=== PATIENT | female | born 1955 | race Caucasian/White ===

== ENCOUNTER 2018-04-10 15:13 | Outpatient (REF) | payer OTHER, SELFPAY ==
[2018-04-10 18:58] LABS: Anion Gap 8.9 mmol/L (3-11); BUN 24 mg/dL (7-18); CO2 27.1 mmol/L (21.0-32.0); CREATININE 1.05 mg/dL (0.55-1.02); Calcium 8.6 mg/dL (8.5-10.1); Chloride 104 mmol/L (98-107); Cholesterol 193 mg/dL (50-200); Estimated GFR 53.28 (mL/min/1.73m2); Glucose 105 mg/dL (70-100); HDL Cholesterol 55 mg/dL (40-60); LDL CHOLESTEROL 104 mg/dL (<100); Potassium 4.3 mmol/L (3.5-5.1); Sodium 140 mmol/L (136-145); Triglyceride 211 mg/dL (30-150)
== END 2018-04-10 15:14 ==
LOC: NCHCN 15:13
PROVIDERS: PCP Internal Medicine; Visit Provider Nurse Practitioner Family
DX: Z00.00 Encounter for general adult medical examination without abnormal findings (principal); Z13.228 Encounter for screening for other metabolic disorders; Z13.220 Encounter for screening for lipoid disorders
CPT/HCPCS: 80048; 80061; 83721

== ENCOUNTER 2019-06-08 18:32 | Outpatient (REF) | payer OTHER, SELFPAY ==
[2019-06-08 19:04] LABS: BUN 11 mg/dL (7-18); CREATININE 0.82 mg/dL (0.55-1.02); Calcium 9.1 mg/dL (8.5-10.1); Calculated LDL 75 mg/dL; Chloride 103 mmol/L (98-107); Cholesterol 154 mg/dL (50-200); Glucose 102 mg/dL (70-100); HDL Cholesterol 52 mg/dL (40-60); Potassium 4.1 mmol/L (3.5-5.1); Sodium 141 mmol/L (136-145); Triglyceride 135 mg/dL (30-150)
[2019-06-08 19:21] LABS: Hemoglobin A1C 6.5 % (4.5-6.2)
== END 2019-06-08 18:52 ==
LOC: NCHCN 18:32
PROVIDERS: PCP Internal Medicine; Visit Provider Nurse Practitioner Family
DX: R73.03 Prediabetes (principal); Z13.220 Encounter for screening for lipoid disorders
CPT/HCPCS: 80048; 80061; 83036

== ENCOUNTER 2020-08-16 04:17 | Outpatient (CLI) | payer OTHER, SELFPAY ==
--- NOTE | 2020-08-16 14:30 | NS.NUTBLAN_ITS ---
ASSESSMENT: Jacquie (65/F) presents with referral for Pre-DM and weight management. Her main concerns today are weight loss and food choices to help facilitate her weight loss goals.She reports losing 30# in 2019 using [employer] program and taking regular walks. Recently she has had some leg issues which have lessened her ability to take walks. She continues weekly meetings with weight loss group. She cooks meals alone for herself which she finds challenging due to her concern about wasting foods and over preparing. She states that she usually does not eat breakfast. Documentation revealed A1c 6.5 and FBG 102 on 06/08/19. Random finger stick at this encounter was 134mg/dl~ 2.5 hours postprandial. She states that she does not use a glucometer. INTERVENTION: Provided demonstration and instruction for Carbs and cals phone jocelyn to help count CHO's and recommended <60 g CHO per meal period. Explained simple and complex CHO's and the role of fiber in the diet r/t BG levels and Cholesterol. Provided literature on counting carbs and reviewed pre-DM BG ranges. Sent Nilam Huffman's ( RN, CDE) contact info for [employer] online Support group program. Recommended [phone] k/cals/day to promote weight loss of 7%. Explained 7% weight loss r/t A1c levels. recommended she get a portion scale to help caloric and CHO leading to weight loss. Recommended she get a glucometer to monitor BG levels 1x/day to track BG and stay in desired ranges. Provided literature on pre-DM. and explained the concept of insulin resistance. NUTRITION DX: Pre DM r/t food choices and nutrition knowledge deficit AEB: A1c 6.5 and random postprandial finger stick 134 mg/dl. MONITOR and EVAL: Jacquie will be focusing on her CHO and caloric intake utilizing the carbs and cals phone jocelyn, Portion scale, and Pre-DM support group to achieve A1c <5.7 and a 7% weight loss. She will return to this office in 6 mos for re-evaluation. Time Spent face to Face: 1 hour/4 units
== END 2020-08-16 04:37 ==
PROVIDERS: PCP Internal Medicine; Visit Provider Dietitian, Registered
DX: R73.03 Prediabetes (principal); E66.3 Overweight; Z71.3 Dietary counseling and surveillance
CPT/HCPCS: 97802

== ENCOUNTER 2021-08-02 15:41 | Outpatient (REF) | payer OTHER, SELFPAY ==
[2021-08-02 19:54] LABS: ALT 21 U/L (14-59); AST 13 U/L (15-37); Albumin 3.5 g/dL (3.4-5.0); Alkaline Phosphatase 110 U/L (46-116); Anion Gap 4.6 mmol/L (3-11); BUN 15 mg/dL (7-18); Bilirubin, Total 0.5 mg/dL (0.2-1.0); CO2 32.4 mmol/L (21.0-32.0); CREATININE 0.9 mg/dL (0.55-1.02); Calcium 8.9 mg/dL (8.5-10.1); Calculated LDL 123 mg/dL (<100); Chloride 103 mmol/L (98-107); Cholesterol 216 mg/dL (<200); Glucose 112 mg/dL (74-106); HDL Cholesterol 61 mg/dL (40-60); Potassium 4.3 mmol/L (3.5-5.1); Sodium 140 mmol/L (136-145); Total Protein 7.3 g/dL (6.4-8.2); Triglyceride 160 mg/dL (<150)
[2021-08-02 20:00] LABS: Hemoglobin A1C 6.4 % (<5.7)
== END 2021-08-02 15:42 | disposition home or self-care (01) ==
LOC: NCHCN 15:41
PROVIDERS: PCP Internal Medicine; Visit Provider Nurse Practitioner Family
DX: R73.03 Prediabetes (principal); E66.01 Morbid (severe) obesity due to excess calories; Z00.00 Encounter for general adult medical examination without abnormal findings
CPT/HCPCS: 80053; 80061; 83036

== ENCOUNTER 2022-01-29 15:18 | Outpatient (REF) | payer OTHER, SELFPAY ==
[2022-01-29 20:25] LABS: ALT 20 U/L (14-59); AST 16 U/L (15-37); Albumin 3.6 g/dL (3.4-5.0); Alkaline Phosphatase 106 U/L (46-116); Anion Gap 8.6 mmol/L (3-11); BUN 16 mg/dL (7-18); Bilirubin, Total 0.4 mg/dL (0.2-1.0); CO2 27.4 mmol/L (21.0-32.0); CREATININE 0.9 mg/dL (0.55-1.02); Calcium 9.2 mg/dL (8.5-10.1); Chloride 101 mmol/L (98-107); Glucose 119 mg/dL (74-106); Potassium 4.6 mmol/L (3.5-5.1); Sodium 137 mmol/L (136-145); Total Protein 7.4 g/dL (6.4-8.2)
== END 2022-01-29 15:19 | disposition home or self-care (01) ==
LOC: NCHCN 15:18
PROVIDERS: PCP Internal Medicine; Visit Provider Nurse Practitioner Family
DX: R73.03 Prediabetes (principal)
CPT/HCPCS: 80053

== ENCOUNTER 2023-05-22 20:06 | Outpatient (REF) | payer SELFPAY ==
--- NOTE | 2023-05-22 14:00 | PAPFT_PTH ---
PATIENT: Jacquie Ac LOC: [facility]#:[id number] AGE/SX: 68/F ROOM: RE05/22/[address]: Ajay Bal : 1955 BED: DIS: 05/22/2023 SPEC #: [id number] RECD: 05/23/23 12:39 STATUS: AMALIA REQ #: [id number] JAMES: 05/22/23 14:[address]: Beverly Bal DEPT: [facility] Cytology RECD BY: Julisa Guerrero ENTERED: 05/23/23 12:39 SP TYPE: PAPFT OTHR DR: Harvey Clifford Tissues: 1 - CX/ENDOCX FOR PAP SMEARS Procedures: PAP THIN PREP/UVM Screening HPV DNA PROBE Comments: [id number] (HPV 16 & 18/45)
[2023-05-22 21:16] LABS: ALT 18 U/L (14-59); AST 11 U/L (15-37); Albumin 3.5 g/dL (3.4-5.0); Alkaline Phosphatase 104 U/L (46-116); Anion Gap 6.7 mmol/L (3-11); BUN 17 mg/dL (7-18); Bilirubin, Total 0.4 mg/dL (0.2-1.0); CO2 28.3 mmol/L (21.0-32.0); CREATININE 0.9 mg/dL (0.55-1.02); Calcium 9.9 mg/dL (8.5-10.1); Calculated LDL 128 mg/dL (<100); Chloride 105 mmol/L (98-107); Cholesterol 230 mg/dL (<200); Estimated GFR 70.51 (mL/min/1.73m2); Glucose 131 mg/dL (74-106); HDL Cholesterol 63 mg/dL (40-60); Potassium 4.5 mmol/L (3.5-5.1); Sodium 140 mmol/L (136-145); Total Protein 7.8 g/dL (6.4-8.2); Triglyceride 197 mg/dL (<150)
== END 2023-05-22 20:07 | disposition home or self-care (01) ==
LOC: NCHCN 20:06
PROVIDERS: PCP Internal Medicine; Visit Provider Nurse Practitioner Family
DX: Z12.4 Encounter for screening for malignant neoplasm of cervix (principal); Z01.419 Encounter for gynecological examination (general) (routine) without abnormal findings; E11.65 Type 2 diabetes mellitus with hyperglycemia; Z11.51 Encounter for screening for human papillomavirus (HPV)
CPT/HCPCS: 80053; 80061; 88142; 87624

== ENCOUNTER 2023-08-27 15:23 | Outpatient (REF) | payer MEDICARE, SELFPAY ==
[2023-08-27 20:55] LABS: Hemoglobin A1C 6.3 % (<5.7)
== END 2023-08-27 15:24 | disposition home or self-care (01) ==
LOC: NCHCN 15:23
PROVIDERS: PCP Internal Medicine; Visit Provider Nurse Practitioner Family
DX: E11.9 Type 2 diabetes mellitus without complications (principal)
CPT/HCPCS: 83036

== ENCOUNTER 2023-11-18 13:10 | Outpatient (CLI) | payer MEDICARE, SELFPAY ==
--- NOTE | 2023-11-18 13:00 | DI.RAD_ITS ---
Exam(s) XR KNEE RT 3V AP,LAT,IVETTE EXAM: XR KNEE RT 3V AP,LAT,IVETTE CLINICAL HISTORY: RIGHT KNEE PAIN. TECHNIQUE: 2D digital imaging was performed. Three views. COMPARISON: No exams were available for comparison FINDINGS: BONES: No acute fracture is present. No bony destructive lesion is seen. JOINTS: Moderate to severe narrowing of the medial femoral tibial joint space. There is also narrowi ng of the patellofemoral joint. Periarticular spurring present. Lateral femoral tibial joint space is maintained. No joint effusion is seen. SOFT TISSUE: Normal. IMPRESSION: Moderate to severe degenerative changes. DATA REPOSITORY: RADIATION DOSE DELIVERED:
--- NOTE | 2023-11-18 13:00 | DI.RAD_ITS ---
Exam(s) XR HIP RT COMPLETE AP PELVIS EXAM: XR HIP RT COMPLETE AP PELVIS CLINICAL HISTORY: RIGHT HIP PAIN. TECHNIQUE: 2D digital imaging was performed. Two views. COMPARISON: No exams were available for comparison FINDINGS: BONES: No acute fracture is present. No bony destructive lesion is seen. JOINTS: No dislocation present. [id number] narrowing of the right hip joint space. Periarticu lar spurring. Left hip joint space is maintained. SOFT TISSUE: Normal. IMPRESSION: Moderate degenerative changes of the right hip. DATA REPOSITORY: RADIATION DOSE DELIVERED:
== END 2023-11-18 13:11 | disposition home or self-care (01) ==
LOC: DIORS 13:10
PROVIDERS: PCP Internal Medicine; Referring Provider Internal Medicine; Visit Provider Student in an Organized Health Care Education/Training Program
DX: M17.11 Unilateral primary osteoarthritis, right knee (principal); M16.11 Unilateral primary osteoarthritis, right hip
CPT/HCPCS: 20611; 73562; 99203; 73502; J1040

== ENCOUNTER → 2024-02-10 10:51 | Outpatient (BNVA) | payer MEDICARE, SELFPAY | PROVIDERS: PCP Nurse Practitioner Family; Referring Provider Internal Medicine; Visit Provider Student in an Organized Health Care Education/Training Program | DX: M17.11 Unilateral primary osteoarthritis, right knee (principal) | CPT/HCPCS: 20610; J1010 ==

== ENCOUNTER 2024-06-02 19:43 | Outpatient (REF) | payer MEDICARE, SELFPAY ==
[2024-06-02 20:31] LABS: ALT 17 U/L (14-59); AST 14 U/L (15-37); Albumin 3.5 g/dL (3.4-5.0); Alkaline Phosphatase 98 U/L (46-116); Anion Gap 6.1 mmol/L (3-11); BUN 10 mg/dL (7-18); Bilirubin, Total 0.59 mg/dL (0.2-1.0); CO2 29.9 mmol/L (21.0-32.0); Calcium 9.6 mg/dL (8.5-10.1); Calculated LDL 102 mg/dL (<100); Chloride 109 mmol/L (98-107); Cholesterol 194 mg/dL (<200); Estimated GFR 61.75 (mL/min/1.73m2); Glucose 128 mg/dL (74-106); HDL Cholesterol 65 mg/dL (40-60); Potassium 4.8 mmol/L (3.5-5.1); Sodium 145 mmol/L (136-145); Total Protein 7.6 g/dL (6.4-8.2); Triglyceride 135 mg/dL (<150)
== END 2024-06-02 19:44 | disposition home or self-care (01) ==
LOC: NCHCN 19:43
PROVIDERS: PCP Nurse Practitioner Family; Visit Provider Nurse Practitioner Family
DX: E78.5 Hyperlipidemia, unspecified (principal); E11.65 Type 2 diabetes mellitus with hyperglycemia
CPT/HCPCS: 80053; 80061

== ENCOUNTER → 2024-06-19 11:09 | Outpatient (BNVA) | payer MEDICARE, SELFPAY | PROVIDERS: PCP Nurse Practitioner Family; Referring Provider Nurse Practitioner Family | DX: M16.11 Unilateral primary osteoarthritis, right hip (principal) | CPT/HCPCS: 20611; J1010 ==

== ENCOUNTER → 2025-04-08 10:50 | Outpatient (BNVA) | payer MEDICARE, SELFPAY | PROVIDERS: PCP Nurse Practitioner Family; Referring Provider Nurse Practitioner Family; Visit Provider Student in an Organized Health Care Education/Training Program | DX: M16.11 Unilateral primary osteoarthritis, right hip (principal); Z68.43 Body mass index [BMI] 50.0-59.9, adult | CPT/HCPCS: 99214 ==

== ENCOUNTER 2025-05-17 15:20 | Outpatient (REF) | payer MEDICARE, SELFPAY ==
[2025-05-17 20:12] LABS: ALT 35 U/L (14-59); AST 27 U/L (15-37); Albumin 3.5 g/dL (3.4-5.0); Alkaline Phosphatase 172 U/L (46-116); Anion Gap 4.6 mmol/L (3-11); BUN 19 mg/dL (7-18); Bilirubin, Total 0.3 mg/dL (0.2-1.0); CO2 30.4 mmol/L (21.0-32.0); Calcium 9.2 mg/dL (8.5-10.1); Calculated LDL 119 mg/dL (<100); Chloride 107 mmol/L (98-107); Cholesterol 203 mg/dL (<200); Estimated GFR 80.21 (mL/min/1.73m2); Glucose 111 mg/dL (74-106); HDL Cholesterol 62 mg/dL (>or=50); Potassium 4.9 mmol/L (3.5-5.1); Sodium 142 mmol/L (136-145); Total Protein 7.5 g/dL (6.4-8.2); Triglyceride 112 mg/dL (<150)
[2025-05-17 20:34] LABS: COMMENT (LAB VIEW ONLY) 102.16 mg/dL; Microalb ug/mg Crea 7.1 ug/mg Cr
== END 2025-05-17 15:21 | disposition home or self-care (01) ==
LOC: NCHCN 15:20
PROVIDERS: PCP Nurse Practitioner Family; Visit Provider Nurse Practitioner Family
DX: E11.9 Type 2 diabetes mellitus without complications (principal)
CPT/HCPCS: 80053; 80061; 82043; 82570

== ENCOUNTER 2025-05-20 14:42 | Outpatient (CLI) | payer MEDICARE, SELFPAY ==
--- NOTE | 2025-05-20 13:45 | DI.RAD_ITS ---
Exam(s) XR PELVIS AP EXAM: XR PELVIS AP CLINICAL HISTORY: THR Planning. TECHNIQUE: 2D digital imaging was performed. COMPARISON: CR XR HIP RT COMPLETE AP PELVIS from 11/18/2023 FINDINGS: AP supine view of both hips compared to 11/18/2023. There are no fractures. Moderate-advanced degenerative changes in the right hip are radiographically unchanged from 11/18/2023. Comprise a bow joint space narrowing and femoral head osteophytes. No obvious progression on this single view study when compared to November 2023. The opposite-left hip remains unremarkable in appearance on the single view. Bone density normal. No osseous lesions. IMPRESSION: Moderate-advanced degenerative osteoarthritic changes in the right hip, exhibiting minimal if any change from images of 11/18/2023. Left hip remains unremarkable. DATA REPOSITORY: RADIATION DOSE DELIVERED:
== END 2025-05-20 14:43 | disposition home or self-care (01) ==
LOC: DIORS 14:42
PROVIDERS: PCP Nurse Practitioner Family; Referring Provider Nurse Practitioner Family; Visit Provider Physician Assistant
DX: Z01.818 Encounter for other preprocedural examination (principal); M16.11 Unilateral primary osteoarthritis, right hip
CPT/HCPCS: 99024; 72170

== ENCOUNTER 2025-05-20 16:17 | Outpatient (REF) | payer MEDICARE, SELFPAY ==
[2025-05-20 16:38] LABS: HCT 38.5 % (36.0-46.0); HGB 12.3 g/dL (11.2-15.7); MCH 27.6 pg (27.0-33.0); MCHC 31.9 % (32.0-36.0); MCV 87 fL (80-95); MPV 10.8 fL (8.0-11.0); Platelet Count 256 10^3/uL (130-400); RBC 4.45 10^6/uL (3.93-5.22); RDW 13.2 % (11.7-14.6); RDW-SD 41.6 fL; WBC 6.90 10^3/uL (4.4-10.8)
[2025-05-20 17:05] LABS: Anion Gap 7.0 mmol/L (3-11); BUN 20 mg/dL (7-18); CO2 32.0 mmol/L (21.0-32.0); Calcium 9.1 mg/dL (8.5-10.1); Chloride 106 mmol/L (98-107); Estimated GFR 80.21 (mL/min/1.73m2); Glucose 89 mg/dL (74-106); Potassium 4.4 mmol/L (3.5-5.1); Sodium 145 mmol/L (136-145)
== END 2025-05-20 16:18 | disposition home or self-care (01) ==
LOC: LBN 16:17
PROVIDERS: PCP Nurse Practitioner Family; Visit Provider Student in an Organized Health Care Education/Training Program
DX: Z01.818 Encounter for other preprocedural examination (principal); M16.11 Unilateral primary osteoarthritis, right hip
CPT/HCPCS: 80048; 85027

== ENCOUNTER 2025-06-02 08:29 | Day surgery (SDC) | payer MEDICARE, SELFPAY ==
[2025-06-02] VITALS (16 sets, daily range): BP systolic 101–171; BP diastolic 49–87; PULSE 58–74; RESP 10–21; TEMP 36–36.7; O2SAT 95–99; BMI 51.9
--- NOTE | 2025-06-02 07:22 | W.PM.DSUDISC ---
Date of service: 06/02/25 Discharge Plan Disposition Patient Disposition: Home Condition: Good Discharge Details Reason For Visit: R THR Attending Provider: Ghassan Knapp Primary Care Provider: Beverly Bal Home Meds and New Rx's Prescriptions: New acetaminophen 500 mg tablet 1,000 mg PO TID Qty: 90 3RF aspirin 81 mg tablet,delayed release (DR/EC) 81 mg PO BID Qty: 60 0RF celecoxib 200 mg capsule 200 mg PO BID Qty: 60 0RF dexamethasone 4 mg tablet 4 mg PO DAILY Qty: 2 0RF docusate sodium 100 mg capsule 100 mg PO BID PRNQty: 28 0RF pantoprazole 40 mg tablet,delayed release (DR/EC) 40 mg PO DAILY Qty: 14 0RF oxycodone 5 mg tablet 5 mg PO Q4H MDD 6 tabs PRN (Reason: pain) Qty: 12 0RF Continued Ozempic 2 mg/dose (8 mg/3 mL) pen injector 2 mg subcut QWEEK fluticasone propionate 220 mcg/actuation HFA aerosol inhaler 2 puff inhalation BID PRN Discontinued ibuprofen 200 mg tablet 200 mg PO Q6H PRN Discharge Instructions Additional Instructions: Total Hip Discharge Instructions Activity: The most important activity is to walk. You should try to take short walks a few times a day. You have no restrictions on movement or positioning, but do not try to force what you do. You will find some stiffness and weakness with hip flexion (lifting your knee). Do not try to strengthen this too early, continue to practice walking and stairs and this will come. - Outpatient physical therapy can be helpful to help return you to a normal gait and improve your flexibility and strength. This can start around 2 weeks. For some patients, it?s not necessary. Usually this is determined at the time of discharge or at the first post-operative visit. - You should wear the VÍCTOR hose on both legs for 2 weeks. Dressing: Keep the surgical dressing in place for at least one week. After the first week it may be removed and replace with light gauze and tape or nothing. It may get wet after 3 days but avoid soaking the dressing. If it gets wet, just lightly pat dry. It is important to always keep some gauze between skin folds, especially when you are sitting. Spend some time with the wound exposed when you are lying flat as the incision does wrinkle onto itself. Medications: - You should take Tylenol and an anti-inflammatory Celebrex as your primary pain control medications. If the Celebrex is too expensive or not covered, please call the office for another alternative (Advil/Ibuprofen or Naproxen/Aleve). - You have been prescribed a stronger pain medication Oxycodone for breakthrough pain, take as needed as prescribed. - You have also been prescribed a stomach acid reduction agent Pantoprozole to help reduce stomach acid and reflux. - You have also been prescribed Decadron to help with post-operative nausea and pain. You will take this for two days starting tomorrow. - You will be taking Aspirin 81mg twice a day for DVT prevention unless instructed otherwise. - If you have constipation you should take Colace or Miralax (both [id number]). It takes most people 3-4 days to have a bowel movement. Follow-up: 2 weeks If you have any acute concerns or questions, please do not hesitate to contact the office at [phone]. You may contact Dr. Knapp with any questions after hours through the hospital at [phone] or on his cell phone at [phone]. Referrals: Ghassan Knapp MD [ [facility] STAFF PHYSICIAN, Orthopaedic Surgical] Equipment/Supplies: Walker Activity:: Activity as Tolerated Shower/Bathe:: 72 hours Diet:: As Tolerated Discharge Orders Discharge Orders: Discharge Order (Routine); Ordered 06/02/25 Ordered By: Armani Valencia DS: Diagnosis Discharge Diagnosis (1) Arthropathy of right hip: Status: Chronic
--- NOTE | 2025-06-02 08:39 | W.ANESPRE ---
General Info Date of Service Date Performed: 06/02/25 Height: 5 ft 3 in Weight: 132.903 kg Body Mass Index (BMI): 51.9 Surgical Procedure: Operation Date: 06/02/25 11:20 Proposed Procedure Side Surgeon p Hip Total Hip Anterior Right Ghassan Knapp MD Meds Allergies and Home Medications Allergies Allergy/AdvReac Type Severity Reaction Status Date / Time latex Allergy Mild rash Verified 06/02/25 09:03 Bleach (Sodium Hypochlorite) Allergy Other (See Verified 06/02/25 09:03 Comment) Home Medication ?Medication ?Instructions ?Recorded fluticasone propionate 220 2 puff inhalation BID PRN 06/19/24 mcg/actuation HFA aerosol inhaler semaglutide 2 mg/dose (8 mg/3 mL) 2 mg subcut QWEEK 04/08/25 subcutaneous pen injector (Ozempic) acetaminophen 500 mg tablet 1,000 mg (2 x 500 mg) PO TID #90 06/02/25 tabs aspirin 81 mg tablet,delayed 81 mg PO BID #60 tabs 06/02/25 release celecoxib 200 mg capsule 200 mg PO BID #60 caps 06/02/25 dexamethasone 4 mg tablet 4 mg PO DAILY #2 tabs 06/02/25 docusate sodium 100 mg capsule 100 mg PO BID PRN #28 caps 06/02/25 menthol-zinc oxide topical powder pwd topical 06/02/25 oxycodone 5 mg tablet 5 mg PO Q4H PRN pain #12 tabs 06/02/25 pantoprazole 40 mg tablet,delayed 40 mg PO DAILY #14 tabs 06/02/25 release Current Visit Medications: Current Medications Generic Name Dose Route Start Last Admin Trade Name Freq PRN Reason Stop Dose Admin Acetaminophen 1,000 mg 06/02/25 06:00 Acetaminophen 500 Mg Tab PO 06/02/25 23:59 PREOP SABINE Acetaminophen 1,000 mg 06/02/25 08:01 Acetaminophen 500 Mg Tab PO 07/02/25 07:19 TID PRN PRN Analgesia Celecoxib 400 mg 06/02/25 06:00 Celecoxib 200 Mg Cap PO 06/02/25 23:59 PREOP SABINE Celecoxib 200 mg 06/02/25 08:30 Celecoxib 200 Mg Cap PO 07/02/25 08:29 BID SABINE Docusate Sodium 100 mg 06/02/25 07:20 Docusate Sodium 100 Mg Cap PO 07/02/25 07:19 BID PRN PRN Constipation Ringer's Solution 1,000 mls @ 80 mls/hr 06/02/25 06:00 IV 06/02/25 23:59 INFUSION SABINE Cefazolin Sodium 3,000 mg/ 100 mls @ 200 mls/hr 06/02/25 06:00 Sodium Chloride IV 06/02/25 23:59 PREOP SABINE Tranexamic Acid/Sodium Chloride 1,000 mg in 100 mls @ 600 mls/hr 06/02/25 06:00 IVPB 06/02/25 23:59 PREOP SABINE IV Miscellaneous Supplies 1 each 06/02/25 06:00 Iv Access IV 06/02/25 23:59 DIRECTED SABINE Ondansetron HCl 4 mg 06/02/25 07:20 Ondansetron 4 Mg/2 Ml Vial IVP 07/02/25 07:19 Q6H PRN PRN Nausea Oxycodone HCl 0 mg 06/02/25 07:20 Oxycodone 5 Mg Tab PO 07/02/25 07:19 Q3H PRN PRN Pain Polyethylene Glycol 17 gm 06/02/25 07:20 Polyethylene Glycol 3350 17 Gm Packet PO 07/02/25 07:19 BID PRN PRN Constipation Sodium Chloride 0 ml 06/02/25 06:00 Normal Saline Flush 10 Ml Syr IV 06/02/25 23:59 PRN PRN Sodium Chloride 0 ml 06/02/25 06:00 Normal Saline 10 Ml Vial IJ 06/02/25 23:59 DIRECTED PRN Sterile Water 0 ml 06/02/25 06:00 Water,Injection,Sterile 10 Ml Vial IJ 06/02/25 23:59 DIRECTED PRN PFSH Active Problems Active Problems: Problem Status Onset Code Osteoarthritis of right knee Chronic M17.11 Arthropathy of right hip Chronic M16.11 Urge incontinence Acute N39.41 Intermittent asthma Acute J45.20 RAJINDER (obstructive sleep apnea) Chronic G47.33 Anxiety Chronic F41.9 Obesity Chronic E66.9 Type 2 diabetes mellitus Acute E11.9 Surgical History Surgical History History of hysterectomy History of hernia repair Ventral hernia with small bowel resection 10/14/24 Tobacco Smoking/Tobacco Use Status: Former Tobacco Use Passive smoking exposure: No Alcohol Alcohol Intake: current Alcohol intake frequency: holidays/special occasions only Substance Use Substance use: Never Substance use type: does not use Vital Signs and Lab Results Vital Signs Most Recent Vital Signs in EMR: Temp Pulse Resp BP Pulse Ox 36.7 C 72 16 133/82 96 06/02/25 08:35 06/02/25 08:35 06/02/25 08:35 06/02/25 08:35 06/02/25 08:35 Lab Results Complete Blood Count: WBC, (4.4-10.8) 6.90 10^3/uL 05/20/25, 14:45 RBC, (3.93-5.22) 4.45 10^6/uL 05/20/25, 14:45 Hgb, (11.2-15.7) 12.3 g/dL 05/20/25, 14:45 Hct, (36.0-46.0) 38.5 % 05/20/25, 14:45 Plt Count, (130-400) 256 10^3/uL 05/20/25, 14:45 Complete Metabolic Panel: Sodium, (136-145) 145 mmol/L 05/20/25, 14:45 Potassium, (3.5-5.1) 4.4 mmol/L 05/20/25, 14:45 Chloride, (98-107) 106 mmol/L 05/20/25, 14:45 Carbon Dioxide, (21.0-32.0) 32.0 mmol/L 05/20/25, 14:45 BUN, (7-18) 20 mg/dL H 05/20/25, 14:45 Creatinine, (0.55-1.02) 0.8 mg/dL 05/20/25, 14:45 Est GFR (CKD-EPI 2020), (mL/min/1.73m2) 80.21 05/20/25, 14:45 Calcium, (8.5-10.1) 9.1 mg/dL 05/20/25, 14:45 Albumin, (3.4-5.0) 3.5 g/dL 05/17/25, 12:10 Glucose, (74-106) 89 mg/dL 05/20/25, 14:45 Liver Function Panel: ALT, (14-59) 35 U/L 05/17/25, 12:10 AST, (15-37) 27 U/L 05/17/25, 12:10 Anesthesia Assessment and Plan Anesthesia History Personal History: No History of Anesthesia Complications Family History: No Family History of Anesthesia Complications Exercise Tolerance Exercise Tolerance: Metabolic Equivalents>4 Pertinent Negatives Pertinent Negatives: No Symptoms of GERD, No Major Cardiovascular Symptoms or Complaints, No Major Pulmonary Symptoms or Complaints and No History of CVA/TIA Cardiac & Pulmonary Exam Cardiac Exam: Normal S1/S2 Heart Sounds Pulmonary Exam: Clear Bilateral Breath Sounds Implantable Cardiac Device Does patient have a Pacemaker or an ICD?: No Airway Exam Known Difficult Airway: No Mallampati Class: 2 Mouth Opening: Normal (> 3cm) Thyromental Distance: Greater than 3 cm Neck Range of Motion: Full ROM Neck Circumference: Normal Teeth Condition: Normal Dentition ASA Classification ASA Score: ASA 3 Emergency Case?: No NPO Status NPO Status: NPO Clears >2 hours, Solids >8 hours Anesthesia Plan Resuscitation Status: Full Code Anesthesia Technique: Spinal Anesthesia Airway Planned: Natural Airway Monitors Used: Standard Monitors Preoperative Comments:: PMH: BMI>50 (Semaglutide, last dose 05/18/25), RAJINDER (CPAP). Discussed increased risk related to BMI
[2025-06-02] MEDS: Acetaminophen 500 MG TAB 1000 MG PO (09:25)
[2025-06-02] MEDS: Celecoxib 200 MG CAP 400 MG PO (09:26)
[2025-06-02] MEDS: Lactated Ringers 1,000 ML 80 ML IV (09:40)
--- NOTE | 2025-06-02 11:50 | W.PM.OP ---
Operative Note Operative Note PRE-OP DIAGNOSIS: Right Hip Osteoarthritis POST-OP DIAGNOSIS: same PROCEDURE: Right Anterior Total Hip Arthroplasty with Intraoperative Navigation SURGEON: Ghassan Knapp JAVA USER INTERFACE DEVELOPER: Armani Valencia ANESTHESIA TYPE: Spinal Refer to Anesthesia Record ESTIMATED BLOOD LOSS: 200 PATHOLOGY: none sent TOURNIQUET TIME: 0 COMPLICATIONS: None Patient was transported to: PACU Patient's condition: stable Implants: 1. Depuy Docena Acetabular Component, 52mm 2. Depuy Acetabular Liner, [id number] 3. Depuy Actis Standard Collared Femoral Stem, Size 4 4. Depuy Altrx Ceramic Femoral Head, Size 36+1.5mm Indications: I have seen Jacquie in clinic for symptoms of hip arthritis, confirmed with radiographic findings. She has exhausted nonoperative methods and was having significant limitations in daily function and desired better function and less pain. I discussed the technical details of a hip replacement. I explained the risks of the procedure to include, but not limited to, bleeding, infection, pain, stiffness, fracture, damage to nerves and vessels, damage to muscles and tendons, loosening, instability, leg length inequality, need for repeat procedure, blood clot and cardiopulmonary demise. Despite these risks, Jacquie elected to proceed. Findings: There was significant signs of arthritis throughout the hip. Procedure Description: Jacquie was greeted in the preoperative holding area where the correct side was identified and marked. The consent was reviewed with the patient and signed. The history and physical was updated. All questions were answered. She was taken back to the operating room. A spinal anesthestic was then administered. The feet were wrapped with cast padding and Coban and then placed into the boot liners and then into the boots. Care was taken to protect the skin and make sure the heels were fully down and the boots were stable. The patient was then positioned onto the HANA table. Both legs were held in a neutral position. SCDs were applied. The patient was then slid down onto a peroneal post. Prophylactic antibiotics in the form of Cefazolin were administered. 1g of Tranxemic Acid was given intravenously within 30 minutes of incision. The right leg was then prepped with Chloraprep and draped in a standard fashion. A second prep with Chloraprep was performed prior to placement of a shower-curtain type drape with Iodine impregnated skin protection. A timeout to confirm correct identity, side and site, procedure, allergies, anesthesia, and medical concerns was performed. An obliquely oriented incision was made starting lateral to the ASIS and running distal over the Tensor Fascia Jewell (TFL) muscle belly toward the fibular head, approximately 14cm. The skin and soft tissue was dissected sharply, through Myranda?s fascia, and to the fascia of the TFL. This approach was challenging given the patient's habitus. This was taken slowly to ensure correct approach to the muscle fascia which was deeper than usual. With the fascia and superior border of the IT band identified, the fascia was incised with a new knife just above any perforators from the IT band. The TFL muscle belly was bluntly dissected away from the fascia and moved laterally. The fat between TFL and rectus was identified to ensure the dissection was not within the TFL. Blunt dissection created space between abductors and the capsule and retractor was placed over the lateral femoral neck. The fibers of the rectus femoris tendon were identified and these were freed from the anterior capsule. A second cobra retractor was placed around the medial femoral neck. The TFL was further retracted laterally to show the deep fascia. Careful dissection through this layer identified three main crossing vessels of the lateral femoral circumflex. These were cauterized in multiple locations and then cut without any noticeable bleeding. The TFL was further released bluntly from the deep fascia to expose anterior hip capsule and fat The soft tissue orthopaedic retractor was then placed beneath the TFL and against sartorius and medial soft tissues to protect and retract the soft tissues. A T-capsulotomy was then performed starting at the superior lateral acetabulum and moving distally to the intertrochanteric ridge. These capsular flaps were tagged with a No. 1 Vicryl and elevated from within. The capsular flaps were released to the shoulder of the lateral neck and to the lesser trochanter to give excellent visualization of the proximal femur. A neck osteotomy was performed using an oscillating saw based on preoperative templates. This cut started in the shoulder and of the lateral neck and exited medially. The saw was at all times directed medially to avoid injury to the greater trochanter. Gross traction was applied to the leg and the osteotomy opened. The femoral head was removed with a corkscrew, making sure to protect the TFL on its exit. Traction was released after head removal. This was measured on the back table to determine the starting reamer size. Portions of the rectus obscuring visualization were minimally elevated off the superior acetabulum. An anterior retractor was placed over the anterior wall between capsule and labrum and attached to the Gripper retraction system. The femur was rotated to 90 degrees and medial capsule was fully released until the lesser trochanter was palpable and visible; the femur was returned to 30 degrees. A posterior retractor was placed similarly between capsule and labrum. This provided excellent visualization. The contents of the cotyloid fossa were removed with electrocautery and the labrum was removed with a knife. There was a notable floor osteophyte. There was significant chondromalacia of the superior acetabulum. Acetabular reaming began with a 48mm reamer. This first reaming was directed anterior to posterior and medial to get down to the true floor. This was inspected and reamed until the true floor was reached. The anterior retractor was then released and entry and exit was provided by traction on the capsular flaps. I then reamed sequentially up to a 52mm reamer where good fit was obtained. The larger reamers were oriented based on anatomical reference of the anterior and lateral boyd to ensure proper abduction and anteversion. Positioning and size was confirmed with the fluoroscopy. A 52mm Depuy Docena acetabular component was selected. The acetabulum was reamed around the periphery with the selected acetabular size to prevent a rim fit. The deep tissues were irrigated. The acetabular component was then impacted in a position of about 40-45 degrees of abduction and 15-20 degrees of anteversion, using the patient?s anatomy as the ultimate landmark. Fluoroscopy was used to confirm this. There was excellent transaction processor of the acetabular component and the inserting handle was removed. The acetabular liner, Depuy [id number] polyethylene liner, was inserted and lined up with the tines of the acetabular component. There was no soft tissue interposition. The liner was then impacted into position and confirmed to be well-seated. A portion of the parish-articular cocktail was then injected around the acetabulum into the capsule and periosteum. This cocktail consisted of 200mg of Ropivacaine, 0.5mg of Epinephrine, and 30mg of Ketorolac, diluted to 100cc. The leg was rotated to 120 degrees. Any remaining medial capsule was released until the lesser trochanter was easily palpable. A retractor was placed medially. The lateral capsule was further released into the shoulder to allow access to the greater trochanter. A Powell retractor was placed over the greater trochanter which allowed the trochanter to flip in front of the capsule. Exposure was adequate. Unfortunately, patient is habitus did make this portion challenging. The leg was brought down into maximal extension and 20 degrees of adduction while ensuring there was no impingement on the acetabulum. Any remnant capsule within the trochanter was released. Piriformis and obturator externis were identified and protected. A blunt canal probe was used to identify the canal and trajectory for later broaching. A box osteotome initiated the broach course. A small curved rasp and a curved curette were used to work laterally. Broaching then began with a starter Actis broach. This was inserted manually around the trochanter and into the canal before mallet blows. The broach was seated to a few millimeters below the cut level based on the neck cut and the preoperative template. At multiple time points I checked the orientation of the leg and utilized the canal probe to ensure appropriate positioning of the leg and broach instruments. Sequential broaching was continued with the Podaddiesse pneumatic broaching device until a tight fit was obtained with good rotational control of the femur. A trial standard neck was inserted along with a +5 trial head. The leg was brought out of extension and adduction and then reduced with traction and internal rotation. The leg was stable anteriorly in a position of 30 degrees of extension and 90 degrees of external rotation. Fluoroscopy was used to ensure there was no fracture and the stem was seated well. Leg lengths were checked with an AP pelvis and pelvic reference points. [employer] navigation system was used to confirm appropriate positioning and leg length and offset. This slightly overcorrected leg length and offset, therefore went to a +1.5 mm head and advance the stem 2 to 3 mm. Once content with the desired offset and leg lengths, the leg was brought back into extension, external rotation and adduction. The periosteum and surrounding tissue was injected with remaining portion of the parish-articular cocktail. The proximal femur was irrigated as well as the deep tissues. The Depuy Actis standard collared stem, size 4, was then manually inserted into the proximal femur making sure to control rotation. It was then malleted into position with light blows, giving breaks to allow bone expansion and decrease risk of fracture. The selected Depuy Altrx Ceramic Head, size 36+1.5mm, was then placed onto the clean and dry trunnion and secured with impaction onto the tapered fit. The leg was brought back out of extension and adduction and reduced with traction and internal rotation. Final x-ray images were obtained with fluoroscopy to confirm adequate positioning and no intraoperative fracture. COMPLICATION The deep tissues were thoroughly irrigated with Surgiphor, betadine solution. This was allowed to sit in the wound for 3 minutes before being thoroughly irrigated out with normal saline. The capsule was then reapproximated with the previously placed sutures. The TFL fascia was finally closed with a No. 2 Stratafix, barbed suture. Deep tissues were then reapproximated with 0 Vicryl and a running 2-0 Vicryl. The skin was closed with a running 4-0 Monocryl in a subcuticular fashion. This was reinforced with skin glue. A Mepilex silver dressing was applied. At the end of the case, all counts were correct. Jacquie was transferred to the hospital bed without difficulty and suffering no apparent complication. Jacquie has a good prognosis. Physical therapy will start today and without restrictions, weight-bearing as tolerated. Aspirin 81mg BID will be used for DVT prophylaxis. Date of Procedure: 06/02/25
[2025-06-02] MEDS: ceFAZolin 3,000 MG in Normal Saline 100 ML 200 MG IV (11:52)
[2025-06-02] MEDS: TRANEXAMIC ACID/SOD. CHL. 1,000 MG/100 ML BAG 600 MG IVPB (11:58)
[2025-06-02] MEDS: Ketorolac 30 MG/ML VIAL (12:20)
[2025-06-02] MEDS: EPINEPHrine 1 MG/ML AMP pres-free (12:20)
[2025-06-02] MEDS: ROPIvacaine 0.2% 200 MG/100 ML BAG (12:20)
--- NOTE | 2025-06-02 13:15 | DI.RAD_ITS ---
Exam(s) XR HIP RT IN OR EXAM: XR HIP RT IN OR CLINICAL HISTORY: Arthropathy of right hip TECHNIQUE: 2D and realtime digital imaging was performed. CONTRAST MATERIAL: Refer to procedure report. COMPARISON: CR XR PELVIS AP from 05/20/2025 FINDINGS: Fluoroscopy was provided for Dr. Knapp during the performance of a right total hip arthroplasty. Please refer to the procedure report for complete details. Ka,r=6.75 mGy IMPRESSION: RADIATION DOSE DELIVERED: 0.0 0.0 0
[2025-06-02] MEDS: oxyCODONE 5 MG TAB PO ×2 (14:22→15:10)
--- NOTE | 2025-06-02 14:50 | W.ANESPOSTOP ---
Postoperative Evaluation Date, Time and Location Date Performed: 06/02/25 Time Performed: 14:50 Patient Location: PACU Vital Signs Most Recent Imported Vital Signs: Most Recent Vital Signs Temp Pulse Resp BP Pulse Ox 36.1 C L 60 16 171/87 H 99 06/02/25 14:46 06/02/25 14:46 06/02/25 14:46 06/02/25 14:46 06/02/25 14:46 Pain Score Most Recent Pain Score: Most Recent Pain Score Pain Level 3 06/02/25 14:46 Assessment Mental Status: Awake (Alert & Oriented to Patient Baseline) Airway and Respiratory Function: Patent airway with normal (patient baseline) respiratory exam Cardiovascular Function: Hemodynamically Stable Hydration Status: Adequately Hydrated Nausea & Vomiting: No Nausea or Vomiting Pain: Pt. Denies Any Pain Peripheral Nerve Block: Patient did not receive a nerve block
[2025-06-02] MEDS: Tranexamic Acid 650 MG TAB 1300 MG PO (15:09)
--- NOTE | 2025-06-02 15:33 | IN_ITS ---
PT Notes Visit Reasons: R THR Physical Therapy Day Surgery Initial Evaluation Date: 06/02/2025 Referring Doctor: CLOVIS Drake PT Orders: PT CONSULT: S/P Ortho surgery Precautions: WBAT through the right LE with AD. Patient Profile/Admitting Diagnosis: Jacquie is a 70-year-old female with degenerative joint disease of the right hip and is status post right total hip arthroplasty on postoperative day 0. PMHX: All Active Problems (Updated 06/19/24 @ 14:35 by Josie Meyer) Osteoarthritis of right knee (Chronic) Depo-Medrol injection 02/10/2024 Arthropathy of right hip (Chronic) DEPO MEDROL 06/19/24Urge incontinence (Acute) Intermittent asthma (Acute) RAJINDER (obstructive sleep apnea) (Chronic) Anxiety (Chronic) Obesity (Chronic) Type 2 diabetes mellitus (Acute) Social History/Home Situation: Lives in a private home with 2 steps to enter with a rail on 1 side. Daughter and sons have been very good support. Independent with all aspects of ADLs prior to surgery. Equipment Owned/DME: Old and narrow FWW. Patient was fitted and issued with a bariatric front wheeled walker for safety Subjective: 2/10 pain in the right hip that did not limit mobility performance. Denied headache, chest pain, and lightheadedness throughout session. Objective: General Observation: Mepilex Ag over surgical incision on the right. TEDS to be legs. Daughter Mary Jo are present in room throughout evaluation. Mental Status: A & O x 4 Pain: Reported 2/10 pain in the right hip at rest and with movement ROM: Right Lower Extremity: Hip flexion WFL. Hip abduction WFL. Knee flexion WFL. Ankle dorsiflexion WFL. Ankle plantarflexion WFL. Left Lower Extremity: Hip flexion WFL. Hip abduction WFL. Knee flexion WFL. Ankle dorsiflexion WFL. Ankle plantarflexion WFL. Strength: Right Lower Extremity: Hip flexors 4-/5. Hip abductors 4-/5. Knee flexors 4/5. Knee extensors4-/5. Ankle dorsiflexors 5/5. Ankle plantarflexors 5/5. Left Lower Extremity:Hip flexors 5/5. Hip abductors 5/5. Knee flexors 5/5. Knee extensors 5/5. Ankle dorsiflexors 5/5. Ankle plantarflexors 5/5. Sensation: Intact as to pain and light pressure in bilateral lower extremities Bed Mobility/Transfers: Minimal cueing provided for use of B hands as needed for support, movement sequence, AD management, and posture to reduce fall risk and minimize pain report Supine to sit standby assist Sit to stand contact-guard assist with FWW Stand to sit standby assist with FWW Bed to chair standby assist with FWW Gait: Facilitated safe and correct performance of level surface ambulation covering a distance of 150 feet with step to gait pattern requiring standby assist of PT and PT student with minimal verbal cueing provided for limb movement sequence, weight distribution onto BLE and AD, AD management, and posture to minimize pain report and reduce reduce fall risk. Stairs: Guided patient with safe and correct negotiation of 6 x 4 inch steps and 2 x 6 inch steps while holding onto rail and using a single-point cane on the other side with step to gait pattern with minimal verbal cueing provided for hand placement, AD management, weight distribution, increased flexion through the right knee during each ascent, and posture to minimize pain report and reduce fall risk. Balance: Static Sitting: Normal Dynamic Sitting: Normal Static Standing: Fair Dynamic Standing: Fair Special Tests: Mobility Limitations Standardized Measure [facility] AM-PAC 6 clicks Basic Mobility Inpatient Short Form: Raw Score: 23 CMS Score: 11% deficit Informed Consent/Education: Patient instructed in purpose of PT consult. Packet containing EDWIN exercise protocol has been given to patient. Education and training on initial set of exercises that can be done at home have been completed with patient. Trained patient with correct performance of exercises below to maximize motor control, joint flexibility, soft tissue extensibility of the R hip musculature to facilitate return to independent functional mobility performance. Access Code: [email or web address] URL: [email or web address] Date: 06/02/2025 Prepared by: Terri Núñez Exercises - Gluteal Sets - 1 x daily - 7 x weekly - 1 sets - 10 reps - 5 hold - Supine Heel Slide - 1 x daily - 7 x weekly - 1 sets - 10 reps - 5 hold - Supine Ankle Pumps - 1 x daily - 7 x weekly - 1 sets - 10 reps - 5 hold - Seated October - 1 x daily - 7 x weekly - 1 sets - 10 reps - 5 hold - Seated Long Arc Quad - 1 x daily - 7 x weekly - 1 sets - 10 reps - 5 hold Assessment: Patient requires the use of a front wheeled walker for all mobility ADL performance to maximize independence and reduce fall risk. Patient presents with clinical signs and symptoms consistent with current/admitting diagnoses that have resulted to mobility limitations, gait instability, generalized weakness, and impairment of motor control as demonstrated by the following impairment level findings: 1. Decreased strength to left knee major muscle groups 2. Impaired standing balance Impairments are contributing to the following functional limitations: 1. Inability to safely ambulate without assistive device 2. Increase completion time for mobility ADL performance 3. Increased fall risk Patient is assessed as a 60422 moderate complexity based on the following: History: 70-year-old female with impairment level findings, functional limitations, and past medical history as indicated above Examination: Demonstrable impairment in strength, balance, and mobility level with underlying impairments and functional limitations as documented above Presentation: Evolving Decision Makin moderate complexity Goals: N/A. PT evaluation and 1-2 treatment sessions only for functional mobility training using recommended AD and for HEP instruction. Plan of Care/Treatment Plan: N/A. PT evaluation and 1-2 treatment session only for functional mobility ashley essence using recommended AD and for HEP instruction. DISCHARGE RECOMMENDATIONS: Home when medically cleared by orthopedic surgeon. Recommend outpatient PT services in order to optimize functional mobility outcomes and facilitate return to independent community ambulation without an assistive device. TREATMENT CODE/TIME: 24412 x 20 minutes for 1 unit, 57915 x 11 minutes for 1 unit) 15: 33?16: 04). Thank you for the opportunity to participate in the care of this patient. Please sign an return this page within 30 days if you agree with the above POC. Thank you! Physician Signature Date [facility]
== END 2025-06-02 16:30 | disposition home or self-care (01) ==
PROVIDERS: PCP Nurse Practitioner Family; Visit Provider Student in an Organized Health Care Education/Training Program
PROC: (CPT 27130; principal; 2025-06-02 11:00)
DX: M16.11 Unilateral primary osteoarthritis, right hip (principal)
CPT/HCPCS: 20985; 27130; 97162; 97530; 73501; C1776; J0166; J0690; J1100; J1885; J2003; J2250; J2371; J2704; J2795; J3475

== ENCOUNTER 2025-06-17 11:28 | Outpatient (CLI) | payer MEDICARE, SELFPAY ==
--- NOTE | 2025-06-17 11:00 | DI.RAD_ITS ---
Exam(s) XR HIP RT COMPLETE AP PELVIS EXAM: XR HIP RT COMPLETE AP PELVIS CLINICAL HISTORY: 1ST POST OP S/P L EDWIN. TECHNIQUE: 2D digital imaging was performed. Two images were obtained. AP pelvis and lateral right hip views were obtained. COMPARISON: CR XR HIP RT COMPLETE AP PELVIS from 11/18/2023 CR XR PELVIS AP from 05/20/2025 XA XR HIP RT IN OR from 06/02/2025 FINDINGS: BONES: There are stable post operative changes of a right total hip arthroplasty present. No fracture or dislocation. JOINTS: The orthopedic hardware is in good position. No evidence of hardware loosening. SOFT TISSUE: Normal. IMPRESSION: Stable right total hip arthroplasty. DATA REPOSITORY: RADIATION DOSE DELIVERED:
== END 2025-06-17 11:29 | disposition home or self-care (01) ==
LOC: DIORS 11:28
PROVIDERS: PCP Nurse Practitioner Family; Referring Provider Nurse Practitioner Family; Visit Provider Student in an Organized Health Care Education/Training Program
DX: Z47.1 Aftercare following joint replacement surgery (principal); Z96.641 Presence of right artificial hip joint
CPT/HCPCS: 99024; 73502

== ENCOUNTER → 2025-07-15 13:07 | Outpatient (BNVA) | payer MEDICARE, SELFPAY | PROVIDERS: PCP Nurse Practitioner Family; Referring Provider Nurse Practitioner Family; Visit Provider Physician Assistant | DX: Z47.1 Aftercare following joint replacement surgery (principal); Z96.641 Presence of right artificial hip joint | CPT/HCPCS: 99024 ==